=== PATIENT | male | born 1955 | race Caucasian/White ===

== ENCOUNTER 2022-09-28 11:40 | Inpatient (IN) | payer MEDICAID ==
[~2022-09-28] VITALS: Ht 188 cm; Wt 102.1 kg
[2022-09-28 12:30] LABS: EOSINOPHILS % 1.6 % (0.0-5.0); HEMATOCRIT. 39.4 % (42.0-52.0); HEMOGLOBIN. 13.8 g/dL (14.0-18.0); LYMPHOCYTES % 15.7 % (20.0-50.0); MEAN CORPUSCULAR HEMOGLOBIN 31.3 pg (28.0-32.0); MEAN CORPUSCULAR VOLUME 89.3 fL (80.0-94.0); MEAN PLATELET VOLUME 8.1 fl (7.4-10.4); MONOCYTES % 6.3 % (2.0-8.0); NEUTROPHILS % 75.4 % (40.0-76.0); PLATELET 228 x1000/uL (130-400); RED BLOOD CELL COUNT 4.41 mill/uL (4.7-6.1); RED CELL DISTRIBUTION WIDTH 12.7 % (11.6-14.6)
[2022-09-28] MEDS ORDERED: MORPHINE SULFATE 4 MG/ML CPJ (NOT FOR IM USE) IV ONE (12:30)
[2022-09-28] MEDS ORDERED: ONDANSETRON HCL 4MG/2ML INJ IV ONE (12:30)
[2022-09-28 12:34] LABS: CHLORIDE 108 mEq/L (98-107)
[2022-09-28 14:57] LABS: CLARITY URINE CLEAR (CLEAR); COLOR URINE YELLOW (YELLOW); KETONES URINE NEGATIVE (NEGATIVE); LEUKOCYTE ESTERASE URINE NEGATIVE (NEGATIVE); NITRITE URINE NEGATIVE (NEGATIVE); OCCULT BLOOD URINE NEGATIVE (NEGATIVE); PROTEIN URINE NEGATIVE (NEGATIVE); SPECIFIC GRAVITY URINE 1.017 (1.005-1.030)
[2022-09-28] MEDS ORDERED: ENAL20TA67 MT (15:53)
[2022-09-28] MEDS ORDERED: CLOP-31 MT (15:53)
[2022-09-28] MEDS ORDERED: HYDR-4009 PO (15:53)
[2022-09-28] MEDS ORDERED: ASPI-1497 MT (15:53)
[2022-09-28 16:00] VITALS: BP 140/95
[2022-09-28] MEDS ORDERED: NALOXONE HCL 0.4MG/ML VIAL IV PRN (17:15)
[2022-09-28] MEDS ORDERED: MORPHINE SULFATE 2 MG/ML CPJ (NOT FOR IM USE) IV PRN (17:15)
[2022-09-28] MEDS ORDERED: IPRATROPIUM/ALBUTEROL 0.5-3(2.5)MG/3ML NEB HHN PRN (18:15)
[2022-09-28] MEDS ORDERED: LORAZEPAM 0.5MG TABLET PO PRN (18:15)
[2022-09-28] MEDS ORDERED: ONDANSETRON HCL 4MG/2ML INJ IV PRN (18:15)
[2022-09-28] MEDS ORDERED: ACETAMINOPHEN 325MG TABLET PO PRN ×2 (18:15)
[2022-09-28] MEDS ORDERED: CLONIDINE 0.1MG TABLET PO PRN (18:15)
[2022-09-28] MEDS ORDERED: DOCUSATE SODIUM 100MG CAPSULE PO PRN (18:15)
[2022-09-28 20:00] VITALS: BP 140/64
[2022-09-28] MEDS: HYDROCODONE/ACETAMINOPHEN 5/325MG TABLET PO PRN (21:33)
[2022-09-29 00:12] VITALS: BP 128/73
[2022-09-29 00:49] LABS: *AMPHETAMINES SCREEN URINE NEGATIVE (NEGATIVE); *BARBITURATES SCREEN URINE NEGATIVE (NEGATIVE); *BENZODIAZEPINES SCREEN URINE NEGATIVE (NEGATIVE); *COCAINE SCREEN URINE NEGATIVE (NEGATIVE); CANNABINOID URINE SCREEN NEGATIVE (NEGATIVE); METHADONE URINE SCREEN NEGATIVE (NEGATIVE); OPIATES URINE SCREEN PRESUMTIVE POSITIVE (NEGATIVE); PHENCYCLIDINE URINE SCREEN NEGATIVE (NEGATIVE)
[2022-09-29 04:00] VITALS: BP 140/91
[2022-09-29] MEDS: HYDROCODONE/ACETAMINOPHEN 5/325MG TABLET PO PRN (06:10)
[2022-09-29 08:00] VITALS: BP 134/80
[2022-09-29 12:00] VITALS: BP 129/88
[2022-09-29] MEDS: ASPIRIN 81MG TABLET PO SCH (14:56)
[2022-09-29] MEDS: CLOPIDOGREL 75MG TABLET PO SCH (14:56)
[2022-09-29] MEDS: HYDROCODONE/ACETAMINOPHEN 10/325MG TABLET PO PRN ×2 (14:56→21:27)
[2022-09-29 16:00] VITALS: BP 129/85
[2022-09-29 20:00] VITALS: BP 137/95
[2022-09-29] MEDS ORDERED: METOPROLOL TARTRATE 25MG TABLET PO SCH (21:00)
[2022-09-30] VITALS: BP 131/85
[2022-09-30 04:00] VITALS: BP 109/59
[2022-09-30 08:00] VITALS: BP 135/89
[2022-09-30] MEDS ORDERED: METOPROLOL TARTRATE 5MG/5ML VIAL IV PRN (08:00)
[2022-09-30] MEDS ORDERED: METOPROLOL TARTRATE 50MG TABLET PO SCH (09:00)
[2022-09-30] MEDS: ASPIRIN 81MG TABLET PO SCH (09:06)
[2022-09-30] MEDS: CLOPIDOGREL 75MG TABLET PO SCH (09:06)
[2022-09-30] MEDS: HYDROCODONE/ACETAMINOPHEN 10/325MG TABLET PO PRN (09:07)
[2022-09-30] MEDS ORDERED: IOHEXOL-350 100 ML BOTTLE ONE (09:10)
[2022-09-30] MEDS ORDERED: NITROGLYCERIN SPRAY/4.9GM CAN TL ONE (09:30)
[2022-09-30] MEDS ORDERED: METO-539 PO (11:13)
[2022-09-30] MEDS ORDERED: CLOP-31 MT (11:39)
[2022-09-30] MEDS ORDERED: HYDR-4009 PO (11:39)
[2022-09-30] MEDS ORDERED: ASPI-1497 MT (11:39)
[2022-09-30 12:12] VITALS: BP 135/89
== END 2022-09-30 12:30 | disposition home or self-care (01) | DRG 203 ==
LOC: ER 11:40 → 7WST 13:22
PROVIDERS: ADMIT Internal Medicine; ATTEND Internal Medicine
DX: M94.0 Chondrocostal junction syndrome [Tietze] (principal); I11.0 Hypertensive heart disease with heart failure; I50.9 Heart failure, unspecified; I25.110 Atherosclerotic heart disease of native coronary artery with unstable angina pectoris; Z86.718 Personal history of other venous thrombosis and embolism; I25.2 Old myocardial infarction; Z95.0 Presence of cardiac pacemaker; Z95.5 Presence of coronary angioplasty implant and graft; Z95.828 Presence of other vascular implants and grafts; Z79.899 Other long term (current) drug therapy
CPT/HCPCS: 36415; 71045; 75571; 80053; 80305; 81003; 83880; 84484; 85025; 85379; 93005; 93306; 99285; J2270; J2405; Q9967